=== PATIENT | male | born 1970 | race Caucasian/White ===

== ENCOUNTER 2021-06-14 14:03 | Emergency (ER) | payer BC ==
[2021-06-14] MEDS ORDERED: Tetracaine HCl/PF 0.5% 4 ML Bottle EYELF ONE (16:17)
== END 2021-06-14 17:20 | disposition home or self-care (01) ==
LOC: MW.ED 14:03
DX: S05.02XA Injury of conjunctiva and corneal abrasion without foreign body, left eye, initial encounter (principal); W22.09XA Striking against other stationary object, initial encounter; Y99.0 Civilian activity done for income or pay; Y92.000 Kitchen of unspecified non-institutional (private) residence as the place of occurrence of the external cause
CPT/HCPCS: 99283